=== PATIENT | female | born 1955 | race Caucasian/White ===

== ENCOUNTER → 2019-07-18 07:33 | Outpatient (CLI) | payer SELFPAY ==
--- NOTE | 2019-07-18 07:37 | CT_ITS ---
PROCEDURE: CT HEART W CALCIUM SCORE CLINICAL HISTORY: HTN, SCREENING COMPARISON: No exams were available for comparison TECHNIQUE: Axial images obtained with sagittal and coronal reformats. All CT scans at the facility use one or more dose reduction, viz: automated exposure control, ma/kV adjustment per patient size (including targeted exams where dose is matched to indication, i.e. head), or iterative reconstruction technique. FINDINGS: The coronary artery calcium score is 181 indicating moderate plaque burden with high cardiovascular disease risk The images obtained demonstrates multiple calcified hilar and mediastinal lymph nodes. There is a small hiatal hernia. Calcified granuloma is present in the lingula and left upper lobe posteriorly IMPRESSION: Moderate plaque burden with high cardiovascular disease risk Dictated by: Adán Syed MD 07/18/2019 13:37 Signed by: <Electronically signed by Adán Syed MD in [place]> 07/18/2019 13:37
== END ==
PROVIDERS: PCP Internal Medicine; Referring Provider Internal Medicine; Visit Provider Internal Medicine
DX: I10 Essential (primary) hypertension (principal)
CPT/HCPCS: 75571

== ENCOUNTER → 2019-08-09 13:38 | Outpatient (CLI) | payer OTHER, SELFPAY ==
--- NOTE | 2019-08-09 13:40 | CA_ITS ---
APPROVED REPORT Exam: Exercise Treadmill Technologist: Farrukh Sears, Ht: 5 ft 3 in Wt: 135 lbs BSA: 1.64 m2 HR: 71 bpm BP: 153/78 mmHg Rhythm: SINUS RHYTHM Indications: Chest pain Medical History Medical History: CHEST PAIN, Hyperlipidemia Medications: BisOPROLOL,,,,, [id number],,,,, AmlodiNPINE,,,,, OmeprazLE,,,,, Asprin,,,,, Allergies: ATORVASTATIN,SULFA Cardiac Risk Factors: HTN, Hyperlipidemia, FHX of CAD Stress Test Details Test: Mitch HR Resting HR: 75 bpm Max Heart Rate (APMHR): 157 bpm Max HR Achieved: 134 bpm Target HR (85% APMHR): 133 bpm % of APMHR: 85 Recovery HR: 95 bpm BP Resting BP: 150.0/83.0 mmHg Max BP: 164.0/77.0 mmHg Recovery BP: 164.0/77.0 mmHg ECG Resting ECG: SINUS RHYTHM ST Change: Non-ischemic Maximum ST Deviation: 0.5 mm Clinical Exercise duration: 08:54 min Highest Stage Achieved: Exercise capacity: 10.1 METs Stress ECG Conclusion MITCH PROTOCOL COMPLETED. EXERCISED 08:54. METS = 10.1. MAX HEART RATE 134 BPM. MAX BP 164/77. TEST STOPPED DUE TO SHORTNESS OF BREATH. MAX HEART RATE 134 BPM WHICH IS 85% OF PM FOR AGE. MAX BP 164/77. METS = 10.1 TEST STOPPED DUE TO SHORTNESS OF BREATH. NO CHEST DIANA. + SOA AT PEAK EXERCISE. OCCASIONAL PVC. 1-2 EPISODES OF BIGEMINY. LESS THAN 1.5MM ST DEPRESSION. GOOD EXERCISE CAPACITY. OCCASIONAL PVC. 2 EPISODES OF BIGEMINY. APPROPRIATE BP RESPONSE. LESS THAN 1.5MM ST DEPRESSION. Normal exercise treadmill stress test Test Summary REST . . . . . . . Standing REST . . . . . . . Sitting REST 08:28 0.0 0.0 75 . 150/ 83 . . Stage 1 01:00 10.0 1.7 88 . . . . Stage 1 02:00 10.0 1.7 94 . . . . Stage 1 03:00 10.0 1.7 95 . . . . Stage 2 01:00 12.0 2.5 105 . 158/ 87 . . Stage 2 02:00 12.0 2.5 110 . 158/ 87 . . Stage 2 03:00 12.0 2.5 115 . 163/ 92 . . Stage 3 01:00 14.0 3.4 119 . . . . Stage 3 02:00 14.0 3.4 125 . . . . Stage 3 02:54 14.0 3.4 133 . . . Stop exercise at 08:54 RECOVERY 01:00 0.0 0.0 106 . . . . RECOVERY 02:00 0.0 0.0 95 . 164/ 77 . . RECOVERY 03:00 0.0 0.0 84 . 160/ 77 . . RECOVERY 04:00 0.0 0.0 80 . 158/ 76 . . RECOVERY 04:11 0.0 0.0 79 . 158/ 76 . . Electronically signed by : Ayan Brooke, 08/09/2019 18:04:38
== END ==
PROVIDERS: PCP Internal Medicine; Visit Provider Internal Medicine Cardiovascular Disease
DX: R07.9 Chest pain, unspecified (principal); R06.02 Shortness of breath
CPT/HCPCS: 93017

== ENCOUNTER → 2019-09-17 13:22 | Outpatient (CLI) | payer OTHER, SELFPAY ==
--- NOTE | 2019-09-17 13:23 | CA_ITS ---
[facility] RADIOLOGICAL CONSULTATION Patient Name : Nichole Carrasco X-RAY # : [id number] Physician: SHIMA BOYER AGE: 64Y : 1955 00:00:00 ( F ) Exam : CA ECHO DOPPLER COMPLETE ACC # : [id number] Study Date : 09/17/2019 13:19:11 Patient Class : O FINAL REPORT CLINICAL DATA: FINDINGS: TRANSCRIBED REPORT EXAM: Comprehensive 2D, Doppler, and color-flow Echocardiogram Automobile Salesman: Karey Worrell RDCS Ht: 5 ft 3 in Wt: 134lbs BSA: 1.63 BP: 166/86 mmHg Indications: Chest Pain, Hyperlipidemia, Hypertension/HDD M-Mode Dimensions LA Diam 3.32 cm (1.9-4.0) RVDs 2.42 cm LVDd 4.30 cm (3.5-5.7) Ao Diam 2.45 cm (2.0-3.7) LVDs 2.60 cm (3.5-5.7) AV Cusp 1.17 cm (1.5-2.6) IVSd 1.00 cm (0.6-1.1) PWd 0.90 cm (0.6-1.1) EF (Teich) 65.00% Electronically signed by : IMPRESSION: Dictated by at Transcribed by at
== END ==
PROVIDERS: PCP Internal Medicine; Visit Provider Internal Medicine Cardiovascular Disease
DX: R07.89 Other chest pain (principal); E78.2 Mixed hyperlipidemia; I10 Essential (primary) hypertension; I25.10 Atherosclerotic heart disease of native coronary artery without angina pectoris; K21.9 Gastro-esophageal reflux disease without esophagitis; Z82.49 Family history of ischemic heart disease and other diseases of the circulatory system
CPT/HCPCS: 93306

== ENCOUNTER → 2019-11-18 10:09 | Outpatient (CLI) | payer OTHER, SELFPAY ==
[2019-11-18 14:04] LABS: Alanine Aminotransferase 19 U/L (12-78); Aspartate Amino Transferase 12 U/L (15-37); Bilirubin,Direct 0.1 mg/dL (0.0-0.2); Bilirubin,Indirect 0.3 mg/dL (0.0-0.9); Bilirubin,Total 0.4 mg/dL (0.2-1.0); Cholesterol 139 mg/dL (140-200); HDL Cholesterol 52 mg/dL (29-89); Total Protein,Serum 7.4 gm/dL (6.4-8.2); Triglycerides 139 mg/dL (30-200); VLDL Cholesterol 28 mg/dL (0-40)
[2019-11-18 14:05] LABS: Alkaline Phosphatase 99 U/L (46-116); Chol/HDL Ratio 2.7 (1-3.5); LDL Cholesterol 59 mg/dL (0-130)
== END ==
PROVIDERS: Visit Provider Internal Medicine Cardiovascular Disease
DX: E78.5 Hyperlipidemia, unspecified (principal); I10 Essential (primary) hypertension; I25.10 Atherosclerotic heart disease of native coronary artery without angina pectoris
CPT/HCPCS: 36415; 80061; 80076

== ENCOUNTER → 2023-10-09 16:28 | Outpatient (CLI) | payer MEDICARE, OTHER, SELFPAY ==
[2023-10-09 17:41] LABS: Free T4 (Free Thyroxine) 1.03 ng/dl (0.78-2.19)
[2023-10-09 17:53] LABS: Iron 91 ug/dL (37-170)
[2023-10-09 17:54] LABS: Thyroid Stimulating Hormone 3.81 uIU/mL (0.465-4.68)
[2023-10-09 18:03] LABS: Total Iron Binding Capacity 341 ug/dL (265-497)
[2023-10-09 18:13] LABS: Vitamin B12 619 pg/mL (239-931)
== END ==
PROVIDERS: PCP Internal Medicine; Visit Provider Internal Medicine
DX: D64.9 Anemia, unspecified (principal); R94.6 Abnormal results of thyroid function studies
CPT/HCPCS: 82607; 83540; 83550; 84439; 84443

== ENCOUNTER 2024-01-12 09:21 | Day surgery (SDC) | payer MEDICARE, OTHER, SELFPAY ==
[2024-01-09 15:30] VITALS: BMI 23.9
[2024-01-12] MEDS: LACTATED RINGERS 1000ML 1,000 ML 25 ML IV (09:40)
[2024-01-12 09:42] VITALS: BP 156/79; PULSE 78; RESP 18; TEMP 36.7; O2SAT 97
--- NOTE | 2024-01-12 10:35 | P.PNANES_ITS ---
[facility] Disclaimer: The information contained in this section may have been updated after the patient was seen, as this information can be updated by other users. Medical History History of gastroesophageal reflux (GERD) History of hyperlipidemia History of hypertension Surgical History History of appendectomy History of colonoscopy History of partial mastectomy of right breast History of total hysterectomy Hx of arthroscopy of right knee Family History Other Family history of NE (myocardial infarction) Family history of diabetes mellitus Family history of hypertension Family history of stroke Social History Smoking Status: Never smoker alcohol intake: never substance use type: denies use current occupational status: retired Travel in the last 8 weeks: None [facility] Anesthesia Checklist Patient Identification Patient Identification: Arm Band Structural Data Admitted From: Home Planned Operative Procedure/s: Colonoscopy Consent for Planned Operative Procedure(s) Verified: Yes Verified Documents: Surgical Consent and History and Physical NPO Status Verified Time NPO: 00:00 Additional verifications Anesthesia Reactions: No Airway Assessment Mallampati Score:: Class II C-Spine Mobility Assessed: Yes TMJ Mobility Assessed: Yes Dentition: Good Dentition Neurological Assessment Level of Consciousness: Awake and Alert Anesthesia Plan Anesthesia Risk discussed: Yes Anesthesia Plan: Verified ASA Class: II Anesthesia Type: MAC
[2024-01-12 10:44] VITALS: O2SAT 97
[2024-01-12 11:23] VITALS: BP 104/58; PULSE 64; RESP 16; TEMP 36.5; O2SAT 97
--- NOTE | 2024-01-12 11:23 | [facility].SCOPE ---
Procedure: Date: 01/12/24 Patient Date of :: 1955 Procedure Performed:: Total colonoscopy to terminal ileum with multiple polypectomy Indications:: Patient is a 68-year-old female. I had done a colonoscopy on her 17 years ago. She has not had subsequent colonoscopy. She underwent Cologuard which was reportedly positive. Performing Provider:: Connor Vergara MD Referring Provider:: MD Nichole Tucker Sedation:: MAC sedation Procedure:: Patient history was obtained and appropriate physical examination was performed. Patient's medications and allergies were reviewed. Informed consent was obtained after explaining the benefits, alternatives, and risks of the procedure including, but not limited to, bleeding, perforation, missed lesions, and adverse reaction to anesthesia medications. Patient was transported to endoscopy procedure room. Patient was connected to monitoring devices. Throughout the procedure the patient's blood pressure, pulse, and oxygen saturations were monitored continuously. Patient identification and planned procedure were verified by the staff. Patient was positioned in lateral decubitus position. Digital anorectal exam was performed. Variable stiffness Olympus colonoscope was inserted and advanced under direct visualization to the cecum. Adequacy of the colonic preparation was noted. The colonoscope was advanced a short distance into the terminal ileum. The colonoscope was then slowly withdrawn while carefully examining the color, texture, anatomy, and integrity of the mucosoa circumferentially. Within the rectum retroflexion was performed. Colonoscope was then withdrawn. . In the cecum in the periappendiceal location there was a sessile adenomatous appearing irregular polyp removed with cold snare. In the cecum adjacent to the ileocecal valve there was a small diminutive adenomatous polyp removed with biopsy forceps. In the ascending colon proximally there was a adenomatous appearing polyp removed with cold snare. Distal to this there was another polyp removed with cold snare with residual tissue removed with biopsy forceps. . Findings:: Polyps as noted above, total of 4 polyps in the right colon Recommendations:: Repeat colonoscopy pending pathology but likely within 3 years Complications:: None immediately apparent Estimated blood obtained (mL): 1 Colonoscopy Component Colonoscopy Component Was a colonoscopy performed during today's procedure?: Yes Recommended follow up colonoscopy of at least 10 years?: No If no, follow up colonoscopy recommended in ___ years?: 3 Reason for not recommending >/= 10 yr follow-up interval?: Polyps
[2024-01-12 11:33] VITALS: BP 108/64; PULSE 73; RESP 17; O2SAT 98
[2024-01-12 11:50] VITALS: BP 104/55; PULSE 71; RESP 18; O2SAT 99
== END 2024-01-12 11:50 | disposition home or self-care (01) ==
PROVIDERS: PCP Internal Medicine; Visit Provider Surgery
PROC: 0DJD8ZZ Inspection of Lower Intestinal Tract, Via Natural or Artificial Opening Endoscopic (ICD-10-PCS; CPT 45380; principal; 2024-01-12 10:30)
DX: D12.0 Benign neoplasm of cecum; D12.2 Benign neoplasm of ascending colon; D12.1 Benign neoplasm of appendix; R19.5 Other fecal abnormalities
CPT/HCPCS: 45380; 45385; 88305

== ENCOUNTER 2024-04-16 09:25 | Outpatient (CLI) | payer MEDICARE, OTHER, SELFPAY ==
--- NOTE | 2024-04-16 09:38 | XR_ITS ---
FINAL REPORT CLINICAL HISTORY: RT FOOT PAIN,S/P INJURY last Monday COMPARISON: None FINDINGS: RIGHT FOOT 3 views of the right foot were obtained. There is no acute fracture or dislocation. Visualized joint spaces are normally aligned. A small plantar spur is noted. Soft tissues are unremarkable. IMPRESSION: No acute bony abnormality. Reviewed, Interpreted and Dictated by Satish Peters MD Transcribed by Criselda Calixto Authenticated and . [facility]
[2024-04-16 17:25] LABS: Basophils % 0.5 % (0.1-2.0); Eosinophils # 0.2 K/mm3 (0.0-0.4); Eosinophils % 2.7 % (0.1-12.0); Hematocrit 39.5 % (37.0-47.0); Hemoglobin 12.7 g/dL (12.2-16.2); Lymphocytes # 2.6 K/mm3 (0.7-4.5); Lymphocytes % 32.3 % (10-50); Mean Corpuscular HGB Conc 32.2 g/dL (31.8-35.4); Mean Corpuscular Hemoglobin 29.2 pg (27.0-31.2); Mean Corpuscular Volume 90.7 fl (81-99); Mean Platelet Volume 9.2 fl (7.4-10.4); Monocytes # 0.4 K/mm3 (0.1-1.0); Monocytes % 5.2 % (1.7-9.3); Neutrophils # 4.7 K/mm3 (1.8-7.8); Neutrophils % 59.2 % (37.0-80.0); Platelet Count 381 K/mm3 (142-424); Red Blood Count 4.35 M/mm3 (4.20-5.40); Red Cell Distribution Width 14.6 % (11.5-17.5)
[2024-04-16 18:34] LABS: Alanine Aminotransferase 19 U/L (12-78); Albumin Level 4.8 g/dl (3.5-5.0); Albumin/Globulin Ratio 1.7 (1.1-1.8); Alkaline Phosphatase 81 U/L (38-126); Anion Gap 16.2 mEq/L (5-15); Aspartate Amino Transferase 31 U/L (14-36); Bilirubin,Total 0.7 mg/dl (0.2-1.3); Blood Urea Nitrogen 15 mg/dl (7-17); Calcium 9.9 mg/dl (8.4-10.2); Carbon Dioxide 28 mmol/L (22.0-30.0); Chloride 101 mmol/L (98-107); Chol/HDL Ratio 2.9 (1-3.5); Cholesterol 154 mg/dl (140-200); Estimated Glomerular Filt Rate 83 ml/min (>60); GFR (African American) 101 ML/MIN (>60); Globulin 2.8 g/dL (1.3-3.2); Glucose 81 mg/dl (74-100); HDL Cholesterol 54 mg/dl (40-60); Potassium 4.2 mmoL/L (3.5-5.1); Sodium 141 mmol/L (136-145); Total Protein,Serum 7.6 g/dl (6.3-8.2); Triglycerides 235 mg/dl (30-150); VLDL Cholesterol 47 mg/dL (0-40)
[2024-04-16 18:39] LABS: Hemoglobin A1C 5.6 % (4.0-6.0)
[2024-04-16 18:44] LABS: Direct LDL Cholesterol 65.62 mg/dL (100-129)
[2024-04-16 19:04] LABS: Thyroid Stimulating Hormone 4.46 uIU/mL (0.465-4.68)
== END 2024-04-16 23:59 | disposition home or self-care (01) ==
LOC: LAB 09:27 → RAD 09:28
PROVIDERS: PCP Internal Medicine; Visit Provider Internal Medicine
DX: M79.671 Pain in right foot (principal); I10 Essential (primary) hypertension; R73.01 Impaired fasting glucose; E78.5 Hyperlipidemia, unspecified; D64.9 Anemia, unspecified; J31.0 Chronic rhinitis
CPT/HCPCS: 73630; 80053; 80061; 83036; 84443; 85025

== ENCOUNTER 2024-10-14 13:56 | Outpatient (CLI) | payer MEDICARE, OTHER, SELFPAY ==
[2024-10-14 12:56] LABS: Albumin Level 4.4 g/dl (3.5-5.0); Chloride 107 mmol/L (98-107); Potassium 4.4 mmoL/L (3.5-5.1); Sodium 142 mmol/L (136-145)
[2024-10-14 12:58] LABS: Alanine Aminotransferase 18 U/L (12-78); Aspartate Amino Transferase 28 U/L (14-36); Blood Urea Nitrogen 14 mg/dl (7-17); Estimated Glomerular Filt Rate 83 ml/min (>60); GFR (African American) 101 ML/MIN (>60)
[2024-10-14 12:59] LABS: Albumin/Globulin Ratio 1.8 (1.1-1.8); Alkaline Phosphatase 74 U/L (38-126); Anion Gap 13.4 mEq/L (5-15); Bilirubin,Total 0.6 mg/dl (0.2-1.3); Calcium 9.4 mg/dl (8.4-10.2); Carbon Dioxide 26 mmol/L (22.0-30.0); Cholesterol 131 mg/dl (140-200); Globulin 2.5 g/dL (1.3-3.2); Glucose 99 mg/dl (74-100); HDL Cholesterol 43 mg/dl (40-60); Total Protein,Serum 6.9 g/dl (6.3-8.2); Triglycerides 194 mg/dl (30-150); VLDL Cholesterol 39 mg/dL (0-40)
[2024-10-14 13:11] LABS: Direct LDL Cholesterol 54.74 mg/dL (100-129)
== END 2024-10-14 23:59 | disposition home or self-care (01) ==
LOC: LAB.DROPOF 13:56
PROVIDERS: PCP Internal Medicine; Visit Provider Internal Medicine
DX: I10 Essential (primary) hypertension (principal); E78.2 Mixed hyperlipidemia; I25.10 Atherosclerotic heart disease of native coronary artery without angina pectoris; J30.9 Allergic rhinitis, unspecified
CPT/HCPCS: 80053; 80061

== ENCOUNTER 2025-04-08 10:58 | Outpatient (CLI) | payer MEDICARE, OTHER, SELFPAY ==
[2025-04-08 17:30] LABS: Basophils % 0.6 % (0.1-2.0); Eosinophils # 0.1 Kmm3 (0.0-0.4); Eosinophils % 1.9 % (0.1-12.0); Hematocrit 38.1 % (37.0-47.0); Hemoglobin 11.9 g/dL (12.2-16.2); Immature Granulocytes # 0.01 10^3uL; Immature Granulocytes % 0.1 %; Lymphocytes # 2.2 K/mm3 (0.7-4.5); Lymphocytes % 31.9 % (10-50); Mean Corpuscular HGB Conc 31.2 g/dL (31.8-35.4); Mean Corpuscular Hemoglobin 28.9 pg (27.0-31.2); Mean Corpuscular Volume 92.5 fl (81-99); Mean Platelet Volume 9.8 fl (7.4-10.4); Monocytes # 0.5 K/mm3 (0.1-1.0); Monocytes % 6.7 % (1.7-9.3); Neutrophils # 4.1 K/mm3 (1.8-7.8); Neutrophils % 58.8 % (37.0-80.0); Nucleated Red Blood Cells # 0 10^3/uL; Nucleated Red Blood Cells % 0 %; Platelet Count 366 K/mm3 (142-424); Red Blood Count 4.12 M/mm3 (4.20-5.40); Red Cell Distribution Width 13.7 % (11.5-17.5); Red Cell Distribution Width-SD 46.5 fL
[2025-04-08 18:02] LABS: Alanine Aminotransferase 17 U/L (12-78); Albumin Level 4.7 g/dl (3.5-5.0); Albumin/Globulin Ratio 2.1 (1.1-1.8); Alkaline Phosphatase 82 U/L (38-126); Aspartate Amino Transferase 28 U/L (14-36); Bilirubin,Total 0.5 mg/dl (0.2-1.3); Blood Urea Nitrogen 17 mg/dl (7-17); Calcium 9.5 mg/dl (8.4-10.2); Carbon Dioxide 26 mmol/L (22.0-30.0); Chloride 108 mmol/L (98-107); Chol/HDL Ratio 2.5 (1-3.5); Cholesterol 118 mg/dl (140-200); Estimated Glomerular Filt Rate 83 ml/min (>60); GFR (African American) 101 ML/MIN (>60); Globulin 2.2 g/dL (1.3-3.2); Glucose 86 mg/dl (74-100); HDL Cholesterol 47 mg/dl (40-60); Sodium 141 mmol/L (136-145); Total Protein,Serum 6.9 g/dl (6.3-8.2); Triglycerides 122 mg/dl (30-150); VLDL Cholesterol 24 mg/dL (0-40)
[2025-04-08 18:15] LABS: Direct LDL Cholesterol 49.37 mg/dL (100-129)
[2025-04-09 12:18] LABS: Iron 65 ug/dL (37-170)
[2025-04-09 12:27] LABS: Total Iron Binding Capacity 335 ug/dL (265-497)
== END 2025-04-08 23:59 | disposition home or self-care (01) ==
LOC: LAB.DROPOF 04-10 10:59
PROVIDERS: PCP Internal Medicine; Visit Provider Internal Medicine
DX: E78.2 Mixed hyperlipidemia (principal); I10 Essential (primary) hypertension; I25.10 Atherosclerotic heart disease of native coronary artery without angina pectoris; K21.9 Gastro-esophageal reflux disease without esophagitis; D64.9 Anemia, unspecified
CPT/HCPCS: 80053; 80061; 83540; 83550; 85025

== ENCOUNTER 2025-10-09 09:00 | Outpatient (CLI) | payer MEDICARE, OTHER, SELFPAY ==
[2025-10-09 17:40] LABS: Hematocrit 39.7 % (37.0-47.0); Hemoglobin 12.2 g/dL (12.2-16.2); Immature Granulocytes % 0.4 %; Mean Corpuscular HGB Conc 30.7 g/dL (31.8-35.4); Mean Corpuscular Hemoglobin 28.0 pg (27.0-31.2); Mean Corpuscular Volume 91.1 fl (81-99); Nucleated Red Blood Cells % 0 %; Platelet Count 348 K/mm3 (142-424); Red Blood Count 4.36 M/mm3 (4.20-5.40); Red Cell Distribution Width-SD 45.6 fL; White Blood Count 8.3 K/mm3 (4.8-10.8)
[2025-10-09 18:22] LABS: Alanine Aminotransferase 18 U/L (12-78); Albumin Level 4.8 g/dl (3.5-5.0); Albumin/Globulin Ratio 1.7 (1.1-1.8); Alkaline Phosphatase 94 U/L (38-126); Anion Gap 14.2 mEq/L (5-15); Aspartate Amino Transferase 30 U/L (14-36); Bilirubin,Total 0.7 mg/dl (0.2-1.3); Blood Urea Nitrogen 19 mg/dl (7-17); Calcium 9.6 mg/dl (8.4-10.2); Carbon Dioxide 26 mmol/L (22.0-30.0); Chloride 102 mmol/L (98-107); Cholesterol 137 mg/dl (140-200); Creatinine,Serum 0.70 mg/dl (0.52-1.04); Estimated Glomerular Filt Rate 83 ml/min (>60); GFR (African American) 100 ML/MIN (>60); Globulin 2.8 g/dL (1.3-3.2); Glucose 81 mg/dl (74-100); HDL Cholesterol 45 mg/dl (40-60); Potassium 4.2 mmoL/L (3.5-5.1); Sodium 138 mmol/L (136-145); Total Protein,Serum 7.6 g/dl (6.3-8.2); Triglycerides 215 mg/dl (30-150)
== END 2025-10-09 23:59 ==
LOC: LAB.DROPOF 10-13 09:01
PROVIDERS: PCP Internal Medicine; Visit Provider Internal Medicine
DX: D64.9 Anemia, unspecified (principal); I10 Essential (primary) hypertension; E78.2 Mixed hyperlipidemia; I25.10 Atherosclerotic heart disease of native coronary artery without angina pectoris
CPT/HCPCS: 80053; 80061; 85025